=== PATIENT | female | born 1955 | race Two or more races ===

== ENCOUNTER → 2025-06-16 | Outpatient (CLI) | payer MEDICARE, SELFPAY ==
--- NOTE | 2025-06-16 12:00 | XR_ITS ---
Examination: Bone densitometry Date and time of exam:June 16, 2025 1202 hours INDICATIONS: Hysterectomy age 24 by Nakul the calcium 10 years Technique: Lumbar spine and hip total bone mineralization values of an calculated. Peak reference and age match control results have been displayed. Findings: Lumbar spine total bone mineralization is1.305 gm/cm2. This is 2.3 standard deviations above peak reference. This is 4.4 standard deviations above age-matched controls. Hip total bone mineralization is 0.956 gm/cm2 This is 0.1 standard deviations above peak reference. This is 1.5 standard deviations above age-matched controls Impression: There is normal mineralization based on lumbar spine measurements. There is normal mineralization based on hip measurements
== END | disposition home or self-care (01) ==
LOC: CDIM 11:31
PROVIDERS: PCP Nurse Practitioner Family; Referring Provider Nurse Practitioner Family; Visit Provider Nurse Practitioner Family
DX: Z13.820 Encounter for screening for osteoporosis (principal)
CPT/HCPCS: 77080